=== PATIENT | female | born 1995 | race Caucasian/White ===

== ENCOUNTER 2016-08-19 07:23 | Emergency (ER) | payer OTHER, MEDICAID ==
[~2016-08-19] VITALS: Ht 167.6 cm; Wt 86.2 kg
--- OUTSIDE RECORDS SUMMARY | 2016-08-19 07:30 | XMS REPORT ---
Author Author ELVIS PIKE [facility] eClinicalWorks Address Unknown Phone Unavailable Care Team Providers Care Hydrology Teacher Name Role Phone ELVIS PIKE CP Unavailable Allergies, Adverse Reactions, Alerts Substance Reaction Event Type N.K.D.A. 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 Active Problem Nausea with vomiting 787.01 Active Problem Unspecified viral infection, in conditions classified elsewhere and of unspecified site 079.99 Active Problem Lump or mass in breast 611.72 Active Problem Other specified disease of hair and hair follicles 704.8 Active Problem examination or test, unconfirmed V72.40 Active Problem Pain in joint, lower leg 719.46 Active Problem Other specified headache syndromes 339.89 Active Medications Medication Code System Code Instructions Start Date End Date Status Dosage Mupirocin [facility] [address]-25 2 % Externally Three times a day May 19, 2015 1 application to affected area Clindamycin HCl [facility] [address]-78 300 MG Orally every 8 hrs May 19, 2015 May 29, 2015 1 capsule Procedures Procedure Coding System Code Date Office Visit, Est Pt., Level 3 CPT-4 29930 May 19, 2015 Vital Signs Date/Time: May 19, 2015 Temperature 99 F Weight 189.2 lbs Height 64 in BMI 32.47 Index Blood Pressure Diastolic 68 mmHg Blood Pressure Systolic 122 mmHg Cardiac Monitoring Heart Rate 88 bpm BMIPercentile 95.72 % Wt Percentile 96.14 % Results No Known Results Summary Purpose eClinicalWorks Submission
[2016-08-19 08:11] LABS: BILIRUBIN,URINE NEGATIVE (NEGATIVE); KETONES,URINE NEGATIVE (NEGATIVE); LEUKOCYTE ESTERASE ,URINE 2+ (NEGATIVE); NITRITE,URINE NEGATIVE (NEGATIVE); PH,URINE 8 (5-9); PROTEIN,URINE NEGATIVE (NEGATIVE); UROBILINOGEN,URINE NORMAL (NORMAL)
[2016-08-19 08:13] LABS: BASOPHILS % (AUTO) 0 % (0-10); EOSINOPHILS % (AUTO) 0 % (0-10); LYMPHOCYTES # (AUTO) 1.2 X 10^3 (1.0-4.0); LYMPHOCYTES % (AUTO) 8 % (12-44); MEAN CORPUSCULAR HEMOGLOBIN 30 PG (25-34); MEAN CORPUSCULAR HGB CONC 34 G/DL (32-36); MEAN CORPUSCULAR VOLUME 86 FL (80-99); MEAN PLATELET VOLUME 8.8 FL (7.4-10.4); MONOCYTES # (AUTO) 0.5 X 10^3 (0.0-1.0); MONOCYTES % (AUTO) 3 % (0-12); NEUTROPHILS # (AUTO) 13.6 X 10^3 (1.8-7.8); NEUTROPHILS % (AUTO) 89 % (42-75); PLATELET COUNT 401 10^3/uL (130-400); RED BLOOD COUNT 4.78 10^6/uL (4.35-5.85); RED CELL DISTRIBUTION WIDTH 14.7 % (10.0-14.5); WHITE BLOOD COUNT 15.3 10^3/uL (4.3-11.0)
[2016-08-19 08:33] LABS: ALANINE AMINOTRANSFERASE 17 U/L (0-55); ALBUMIN 4.6 G/DL (3.2-4.5); ANION GAP 12 MMOL/L (5-14); ASPARTATE AMINO TRANSFERASE 14 U/L (5-34); BILIRUBIN,TOTAL 0.5 MG/DL (0.1-1.0); BLOOD UREA NITROGEN 10 MG/DL (7-18); BUN/CREATININE RATIO 14; CALCIUM 9.3 MG/DL (8.5-10.1); CARBON DIOXIDE 18 MMOL/L (21-32); CHLORIDE 106 MMOL/L (98-107); GFR ESTIMATED > 60; GLUCOSE 128 MG/DL (70-105); SODIUM 136 MMOL/L (135-145); TOTAL PROTEIN 7.5 G/DL (6.4-8.2)
[2016-08-19 08:34] LABS: ALCOHOL < 10 MG/DL (<10); LYMPHOCYTES % (MANUAL) 3 %; NEUTROPHILS % (MANUAL) 94 %; REACTIVE LYMPHOCYTES 3 %
--- NOTE | 2016-08-19 09:25 | ED Psychosocial ---
General Chief Complaint: Psych/Social Disorder Stated Complaint: STRESS, PANIC ATTACK Nursing Triage Note: Pt feels like she is having a panic attack. Pt states she is under stress because she is afraid she is going to loose her apartment. Rent is 200 per month. She chooses not to work because she wants to spend more time with her kids. States he luis lives with them as well. Denies suicidal ideations. She took a friends Ativan without relief. Source: patient Exam Limitations: no limitations History of Present Illness Time seen by provider: 09:20 Initial Comments The patient is a 21-year-old white female who presents with the complaints that she is having a panic attack. This reached a peak yesterday. She borrowed a friend's Ativan and took one however this was less than completely successful. She reports that she inherited these tendencies from her mother. Her past history includes mental health clinic counseling. Her stresses include a fear that she is not going to be able to pay the rent at her apartment. [employer] $200 per month. She has not chosen to work because she states she wanted to spend more time with her children. Her fianc also lives with them. Timing/Duration: yesterday Associated Symptoms: anxiety Allergies and Home Medications Allergies Coded Allergies: morphine (Verified Allergy, Unknown, 08/19/16) Home Medications No Active Prescriptions or Reported Meds Constitutional: see HPI EENTM: no symptoms reported Respiratory: no symptoms reported Cardiovascular: no symptoms reported Gastrointestinal: no symptoms reported Genitourinary: no symptoms reported Musculoskeletal: no symptoms reported Skin: no symptoms reported Psychiatric/Neurological: Anxiety Emotional Problems Past Jpvhvoe-Goepvg-Lcngqj Hx Patient Social History Alcohol Use: Denies Use Recreational Drug Use: No Smoking Status: Current Everyday Smoker Recent Foreign Travel: No Contact w/Someone Who Travel: No Recent Infectious Disease Expo: No Recent Hopitalizations: No Surgeries HX Surgeries: Yes Surgeries: Orthopedic Respiratory Hx Respiratory Disorders: No Cardiovascular Hx Cardiac Disorders: No Neurological Hx Neurological Disorders: No Reproductive System : No Hx Reproductive Disorders: No Genitourinary Hx Genitourinary Disorders: No Gastrointestinal Hx Gastrointestinal Disorders: No Musculoskeletal Hx Musculoskeletal Disorders: No Endocrine Hx Endocrine Disorders: No HEENT HX ENT Disorders: No Cancer Hx Cancer: No Psychosocial Hx Psychiatric Problems: No Integumentary HX Skin/Integumentary Disorder: No Blood Transfusions Hx Blood Disorders: No Physical Exam Vital Signs Vital Sign - Last 12Hours 08/19/16 07:37 Temp 97.5 Pulse 88 Resp 20 B/P 145/61 Pulse Ox 99 O2 Delivery Room Air Capillary Refill : Less Than 3 Seconds General Appearance: mild distress HEENT: normal ENT inspection Neck: full range of motion Respiratory: chest non-tender Cardiovascular: normal peripheral pulses regular rate, rhythm no edema no gallop no JVD no murmur Gastrointestinal: other Extremities: normal range of motion non-tender normal inspection no pedal edema no calf tenderness normal capillary refill pelvis stable Neurologic/Psychiatric: 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-XII nml as tested no motor/sensory deficits alert normal mood/affect oriented x 3 abnormal cerebellar tests abnormal 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- XII Appearance/Memory: appropriate appearance appropriate insight neat no memory impairment denies illness Behavior/Eye Contact: cooperative good eye contact normal speech Skin: normal color warm/dry Lymphatic: no adenopathy Progress/Results/Core Measures Results/Orders Lab Results Laboratory Tests Test 08/19/16 08:00 Range/Units Alanine Aminotransferase (ALT/SGPT) 17 0-55 U/L Albumin 4.6 H 3.2-4.5 G/DL Alkaline Phosphatase 104 40-136 U/L Anion Gap 12 5-14 MMOL/L Aspartate Amino Transf (AST/SGOT) 14 5-34 U/L BUN/Creatinine Ratio 14 Basophils # (Auto) 0.0 0.0-0.1 10^3/uL Basophils (%) (Auto) 0 0-10 % Blood Morphology Comment NORMAL Blood Urea Nitrogen 10 7-18 MG/DL Calcium Level 9.3 8.5-10.1 MG/DL Carbon Dioxide Level 18 L 21-32 MMOL/L Chloride Level 106 98-107 MMOL/L Creatinine 0.70 0.60-1.30 MG/DL Eosinophils # (Auto) 0.0 0.0-0.3 10^3/uL Eosinophils (%) (Auto) 0 0-10 % Estimat Glomerular Filtration Rate > 60 Glucose Level 128 H 70-105 MG/DL Hematocrit 41 35-52 % Hemoglobin 14.1 11.5-16.0 G/DL Lymphocytes # (Auto) 1.2 1.0-4.0 X 10^3 Lymphocytes % (Manual) 3 % Lymphocytes (%) (Auto) 8 L 12-44 % Mean Corpuscular Hemoglobin 30 25-34 PG Mean Corpuscular Hemoglobin Concent 34 32-36 G/DL Mean Corpuscular Volume 86 80-99 FL Mean Platelet Volume 8.8 7.4-10.4 FL Monocytes # (Auto) 0.5 0.0-1.0 X 10^3 Monocytes (%) (Auto) 3 0-12 % Neutrophils # (Auto) 13.6 H 1.8-7.8 X 10^3 Neutrophils % (Manual) 94 % Neutrophils (%) (Auto) 89 H 42-75 % Platelet Count 401 H 130-400 10^3/uL Potassium Level 4.0 3.6-5.0 MMOL/L Reactive Lymphocytes 3 % Red Blood Count 4.78 4.35-5.85 10^6/uL Red Cell Distribution Width 14.7 H 10.0-14.5 % Serum Alcohol < 10 <10 MG/DL Sodium Level 136 135-145 MMOL/L Total Bilirubin 0.5 0.1-1.0 MG/DL Total Protein 7.5 6.4-8.2 G/DL Ur Tricyclic Antidepressants Screen NEGATIVE NEGATIVE Urine Amphetamines Screen NEGATIVE NEGATIVE Urine Bacteria FEW H /HPF Urine Barbiturates Screen NEGATIVE NEGATIVE Urine Benzodiazepines Screen POSITIVE H NEGATIVE Urine Bilirubin NEGATIVE NEGATIVE Urine Cannabinoids Screen NEGATIVE NEGATIVE Urine Casts NONE /LPF Urine Clarity SLIGHTLY CLOUDY Urine Cocaine Screen NEGATIVE NEGATIVE Urine Color YELLOW Urine Crystals NONE /LPF Urine Culture Indicated YES Urine Glucose (UA) NEGATIVE NEGATIVE Urine Ketones NEGATIVE NEGATIVE Urine Leukocyte Esterase 2+ H NEGATIVE Urine Methadone Screen NEGATIVE NEGATIVE Urine Methamphetamines Screen NEGATIVE NEGATIVE Urine Mucus NEGATIVE /LPF Urine Nitrite NEGATIVE NEGATIVE Urine Opiates Screen NEGATIVE NEGATIVE Urine Oxycodone Screen NEGATIVE NEGATIVE Urine Phencyclidine Screen NEGATIVE NEGATIVE Urine Propoxyphene Screen NEGATIVE NEGATIVE Urine Protein NEGATIVE NEGATIVE Urine RBC NONE /HPF Urine RBC (Auto) NEGATIVE NEGATIVE Urine Specific [place] 1.015 L 1.016-1.022 Urine Squamous Epithelial Cells 10-25 H /HPF Urine Urobilinogen NORMAL NORMAL MG/DL Urine WBC 5-10 H /HPF Urine pH 8 5-9 White Blood Count 15.3 H 4.3-11.0 10^3/uL My Orders Orders-JED LANE MD Alcohol (08/19/16 07:37) Cbc With Automated Diff (08/19/16 07:37) Comprehensive Metabolic Panel (08/19/16 07:37) Drug Screen Stat (Urine) (08/19/16 07:37) Ua Culture If Indicated (08/19/16 07:37) Manual Differential (08/19/16 08:00) Urine Culture (08/19/16 08:00) Vital Signs/I&O Vital Sign - Last 12Hours 08/19/16 07:37 Temp 97.5 Pulse 88 Resp 20 B/P 145/61 Pulse Ox 99 O2 Delivery Room Air Blood Pressure Mean: 89 Departure Impression Impression: Primary Impression: Anxiety Disposition: 01 HOME, SELF-CARE Condition: Stable/Unchanged Departure-Patient Inst. Decision time for Depature: 09:23 Referrals: NO,LOCAL PHYSICIAN (PCP) Primary Care Physician Add. Discharge Instructions: All discharge instructions reviewed with patient and/or family. Voiced understanding. You've been given a limited amount of Ativan. You will need to make contact with mental health for further treatment Scripts Lorazepam (Ativan)0.5 Mg Tablet0.5 Mg PO 3 TIMES A DAY #15 TAB Prov:JED LANE MD 08/19/[address] MD Aug 19, 2016 09:25
[2016-08-19] MEDS ORDERED: LORA-404 PO (09:26)
[2016-08-19 09:45] VITALS: BP 133/70
== END 2016-08-19 09:45 | disposition home or self-care (01) ==
LOC: EDUNIT# 07:23 → ER 07:27
DX: F41.9 Anxiety disorder, unspecified (principal); F17.210 Nicotine dependence, cigarettes, uncomplicated
CPT/HCPCS: 36415; 80053; 80306; 80320; 81000; 85007; 85027; 87088; 99283